=== PATIENT | female | born 1980 | race Caucasian/White ===

== ENCOUNTER → 2017-06-20 10:23 | Outpatient (CLI) | payer OTHER, SELFPAY ==
--- NOTE | 2017-06-20 10:29 | MRI_ITS ---
STUDY: MRA OF THE PELVIS WITH OR WITHOUT CONTRAST REASON FOR EXAM: Female, 37 years old. Venous outflow obstruction. TECHNIQUE: Source images were obtained, MIPs were performed. Applies only if contrast was used: 10 ml of Gadavist was administered for the contrast portion of this study. TECHNICAL QUALITY: Good COMPARISON: None. Descriptors of Narrowing: None (0%) Mild (< 50%) Moderate (50-70%) Severe (70-90%) Subtotal/Total Occlusion (90-100%) Non-Evaluable (technically non-diagnostic) FINDINGS: RIGHT Right common iliac artery: No demonstrated narrowing. Right common iliac vein: Patent Right external iliac artery: No demonstrated narrowing. Right external iliac vein: Patent Right internal iliac artery: No demonstrated narrowing. Right internal iliac vein: Patent LEFT Left common iliac artery: No demonstrated narrowing. Left common iliac vein: Moderate narrowing due to extrinsic compression from the right common iliac artery (for example image 24 series 11). Left external iliac artery: No demonstrated narrowing. Left external iliac vein: Patent Left internal iliac artery: No demonstrated narrowing. Left internal iliac vein: Patent There is no evidence of an obstructing pelvic mass. 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 Otherwise, unremarkable iliac arteries and veins, as described above. Electronically Signed: Forrest Damon, at 16:22 EDT Tel , Service support ,
== END ==
PROVIDERS: Visit Provider Surgery
DX: I87.2 Venous insufficiency (chronic) (peripheral) (principal); I83.10 Varicose veins of unspecified lower extremity with inflammation; I87.309 Chronic venous hypertension (idiopathic) without complications of unspecified lower extremity; Z86.718 Personal history of other venous thrombosis and embolism
CPT/HCPCS: 72198; A9585; C8920